=== PATIENT | male | born 1975 | race Caucasian/White ===

== ENCOUNTER 2022-08-02 16:18 | Emergency (ER) | payer BC ==
[2022-08-02 16:40] VITALS: TEMP 98
[2022-08-02] MEDS ORDERED: KETOROLAC 15 MG/ML 1 ML VIAL IM STA (16:51)
--- NOTE | 2022-08-02 16:53 | ED ---
ENT HPI - General Chief complaint: Dental/Oral Stated complaint: Dental issues Time Seen by Provider: 08/02/22 16:46 Source: patient Mode of arrival: ambulatory Limitations: no limitations - History of Present Illness Initial comments: Patient is a 46-year-old male who presents to the emergency department chief complaint of tooth pain. Patient feels that he broke his tooth while chewing on a sandwich today. Denies trauma. Using Orajel for pain otherwise has not taken any medication. Denies mouth swelling, fever, chills. Has not followed with a dentist in several years. States he has appointment with a dentist on Friday. - Related Data Previous Rx's Medication Instructions Recorded Ibuprofen [Motrin] 800 mg PO Q8H PRN 7 Days #21 tab 08/02/22 Allergies Allergy/AdvReac Type Severity Reaction Status Date / Time No Known Allergies Allergy Verified 08/02/22 16:40 Review of Systems ROS Statement: Those systems with pertinent positive or pertinent negative responses have been documented in the HPI. ROS Other: All systems not noted in ROS Statement are negative. Past Medical History Past Medical History: No Reported History Past Surgical History: No Surgical Hx Reported Past Psychological History: No Psychological Hx Reported Smoking Status: Never smoker Past Alcohol Use History: Occasional Past Drug Use History: None Reported General Exam Limitations: no limitations General appearance: alert, in no apparent distress Head exam: Present: atraumatic, normocephalic, normal inspection ENT exam: Present: other (cavity in lower left tooth. No surrounding erythema, swelling. No drainable abscess) Respiratory exam: Present: normal lung sounds bilaterally. Absent: respiratory distress, wheezes, rales, rhonchi, stridor Cardiovascular Exam: Present: regular rate, normal rhythm, normal heart sounds. Absent: systolic murmur, diastolic murmur, rubs, gallop, clicks Neurological exam: Present: alert, oriented X3, CN II-XII intact Psychiatric exam: Present: normal affect, normal mood Skin exam: Present: warm, dry, intact, normal color. Absent: rash Course Vital Signs 08/02/22 08/02/22 08/02/22 16:37 17:24 17:47 Temperature 98.0 F Pulse Rate 83 68 Respiratory 20 16 16 Rate Blood Pressure 177/115 160/98 O2 Sat by Pulse 100 99 Oximetry Medical Decision Making - Medical Decision Making This is a 46-year-old male who presents with tooth pain. Thorough history and examination were performed. There is a cavity in lower left tooth. No surrounding erythema, swelling. No drainable abscess. Pain controlled. Blood pressure was initially elevated however did improve after pain medication. Patient states he recently had an appointment with his primary care provider and had normal blood pressure. Denies history of hypertension. Patient to follow-up with primary care provider and dentist. Dr. Mendoza is my attending. Disposition Clinical Impression: Dental cavity Disposition: HOME SELF-CARE Condition: Good Instructions (If sedation given, give patient instructions): Toothache (ED) Additional Instructions: Take Motrin for pain. Follow-up with dentist on Friday as planned. Chewing on the affected tooth until dental evaluation. Return to the emergency department experience new, concerning, or worsening symptoms. Prescriptions: Ibuprofen [Motrin] 800 mg PO Q8H PRN 7 Days #21 tab PRN Reason: Pain Is patient prescribed a controlled substance at d/c from ED?: No Referrals: None,Stated [Primary Care Provider] - 1-2 days Time of Disposition: 16:53
[2022-08-02 17:26] VITALS: BP 160/98; RESP 16
[2022-08-02 17:59] VITALS: PULSE 68
== END 2022-08-02 17:56 | disposition home or self-care (01) ==
LOC: EC 16:18
DX: K02.9 Dental caries, unspecified (principal)
CPT/HCPCS: 99282; 96372; J1885